=== PATIENT | female | born 1950 | race Caucasian/White ===

== ENCOUNTER → 2018-03-16 | Outpatient (CLI) | payer MEDICARE, OTHER ==
[~2018-03-16] MED LIST: ASPI81EC PO; ATEN25 PO; Augmentin 875-1 EACH PO; CEPH500 PO; DIAZ5 PO; DULO60 PO; ESTR2 PO; ESTRACE; HYDMOR2 PO; LISI20 PO; Norco 10-325 T1 EACH PO; Norco 5-325 Ta1 EACH PO; RXOXYACE PO; Zofran Odt4 MG SL
== END | disposition home or self-care (01) ==
LOC: LAB SHORT 10:00 → PLD 10:00
DX: D22.71 Melanocytic nevi of right lower limb, including hip (principal)
CPT/HCPCS: 88305

== ENCOUNTER 2018-12-28 17:26 | Observation (INO) | payer MEDICARE, OTHER ==
[~2018-12-28] VITALS: Ht 157.5 cm; Wt 83.3 kg
[~2018-12-28 17:26] MED LIST changes: +PROP80ER PO; +VITAMIN D32000 UNI1 PO
[2018-12-28] MEDS ORDERED: Prinivil10 MG PO (17:38)
[2018-12-28] MEDS ORDERED: Prilosec Otc20 MG PO (17:39)
[2018-12-28 18:26] LABS: BASOPHILS ABSOLUTE AUTO 0.09 K/mm3 (0.00-0.23); BASOPHILS PERCENT AUTO 1 % (0-2); EOSINOPHILS ABSOLUTE AUTO 0.08 K/mm3 (0.00-0.68); EOSINOPHILS PERCENT AUTO 1 % (0-6); Hematocrit 44.3 % (33.0-51.0); Hemoglobin 14.4 g/dL (11.5-16.0); IMMATURE GRAN ABSOLUTE AUTO 0.03 K/mm3 (0.00-0.10); IMMATURE GRAN PERCENT AUTO 0 % (0-1); LYMPHOCYTES ABSOLUTE AUTO 2.19 K/mm3 (0.84-5.20); LYMPHOCYTES PERCENT AUTO 24 % (21-46); MONOCYTES ABSOLUTE AUTO 0.93 K/mm3 (0.16-1.47); MONOCYTES PERCENT AUTO 10 % (4-13); Mean Corpuscular HGB 29.3 pg (26.0-34.0); Mean Corpuscular HGB Conc 32.5 g/dL (31.5-36.5); Mean Corpuscular Volume 90 fL (80-100); Mean Platelet Volume 11.4 fL (9.1-12.4); NEUTROPHILS PERCENT AUTO 64 % (41-73); Platelet Count 303 K/mm3 (150-400); RDW Coefficient Variation 12.1 % (11.7-14.2); RDW Standard Deviation 39.8 fL (35.1-46.3); Red Blood Cell Count 4.91 M/mm3 (3.80-5.20); White Blood Cell Count 9.12 K/mm3 (4.00-11.30)
[2018-12-28 19:07] LABS: Troponin I <0.015 ng/mL (0.000-0.040)
[2018-12-28 19:08] LABS: Alanine Aminotransfer (ALT/SGP 67 U/L (12-78); Albumin/Globulin Ratio 1.1 (0.8-1.8); Alk Phos 77 U/L (50-136); Anion Gap 12 mmol/L (6-16); Aspartate Aminotrans (AST/SGOT 27 U/L (12-37); Bilirubin, Total 0.1 mg/dL (0.1-1.0); Blood Urea Nitrogen 3 mg/dL (8-24); Bun/Creatinine Ratio 6.6 (12.0-20.0); CO2, Blood 19 mmol/L (21-32); Calcium, Blood 8.6 mg/dL (8.5-10.1); Chloride, Blood 113 mmol/L (98-108); Creatinine, Blood 0.46 mg/dL (0.40-1.00); Globulin, Blood 3.8 g/dL (2.2-4.0); Glomerular Filtration Rate >60 (60-); Glucose, Blood 141 mg/dL (70-99); Potassium, Blood 2.8 mmol/L (3.5-5.5); Sodium, Blood 144 mmol/L (136-145); Total Protein, Blood 7.8 g/dL (6.4-8.2)
[2018-12-28] MEDS ORDERED: ALPR.25 PO (20:37)
[2018-12-29 06:30] LABS: Anion Gap 7 mmol/L (6-16); Blood Urea Nitrogen 22 mg/dL (8-24); Bun/Creatinine Ratio 30.9 (12.0-20.0); CO2, Blood 27 mmol/L (21-32); Calcium, Blood 8.3 mg/dL (8.5-10.1); Chloride, Blood 110 mmol/L (98-108); Creatinine, Blood 0.71 mg/dL (0.40-1.00); Glomerular Filtration Rate >60 (60-); Glucose, Blood 107 mg/dL (70-99); Sodium, Blood 144 mmol/L (136-145)
--- NOTE | 2018-12-29 07:56 | NUR ---
SHIFT SUMMARY PT ALERT AND ORIENTED X 3 SINCE ARRIVAL FROM ER THIS EVENING. SHE IS PLEASANT AND COOPERATIVE WITH VITALS AND ASSESSMENTS. SHE IS ABLE TO APPROPRIATELY COMMUNICATE AND EXPRESS NEEDS. SHE SLEPT WELL DURING THE NIGHT. PT VITALS HAVE BEEN STABLE SINCE ARRIVAL, SHE HAD HAD NO COMLAINTS OF PAIN OR DISCOMFORT AND SHE WAS ABLE EAT AND DRINK WITHOUT DIFFICULTY. PT HAS BEEN INDEPENDENT IN THE ROOM AND WAS OBSERVED TO BE STEADY AND WELL BALANCED DURING AMBULATION. PT USED HER CALL LIGHT APPROPRIATELY AND IT WAS LEFT WITHIN EASY REACH. PT'S RATE HAS BEEN WELL CONTROLLED SINCE ARRIVAL. SHE WILL CONTINUE TO BE MONITORED UNTIL HANDOFF TO DAYSHIFT RN.
--- NOTE | 2018-12-29 10:44 | NUR ---
Echocardiogram completed.
--- NOTE | 2018-12-30 06:19 | NUR ---
SHIFT SUMMARY PT ALERT AND ORIENTED X 3 THROUGHOUT SHIFT. SHE WAS PLEASANT AND COOPERATIVE AND SLEPT THROUGHOUT SHIFT. SHE HAD A HEADACHE AT SHIFT CHANGE AND WAS PROVIDED ORDERED TYLENOL. THIS HELPED AND BY SECOND DOSE, SHE SAID HEADACHE WAS CLEARED UP. PT INDEPENDENT IN THE ROOM. NO ACUTE CHANGES WERE OBSERVED TO VITALS AND PT WAS ABLE TO EFFECTIVELY MAKE NEEDS KNOWN. PT WILL CONTINUE TO BE MONITORED UNTIL HANDOFF TO DAYSHIFT RN. SHE REMAINS NPO AT THIS TIME FOR SECOND PORTION OF HER STRESS TEST.
--- NOTE | 2018-12-30 08:00 | NUR ---
AM Assessment: Pt resting in bed. LS clear. HR reg. BT positive. Pulses palp. Pt denies CP/SOB. States that she has been chest pain free since being in PCU. VSS. Pt does have a C/O headache likely a Caffiene headache. Pt NPO after breakfast for 2nd portion of stress test. Pt denies other needs. Call light in reach.
--- NOTE | 2018-12-30 14:49 | NUR ---
update: Pt back in room after images being completed. Pt had lexiscan at around 1230. She had some leg cramping and headache with injection. After caffiene pt was feeling much better. at bedside. Pt denies needs at this time. Call light in reach.
[2018-12-30] MEDS ORDERED: ACET325 PO (17:05)
[2018-12-30] MEDS ORDERED: PROP80ER PO (17:06)
== END 2018-12-30 18:06 | disposition home or self-care (01) ==
LOC: ER 17:26 → PCU 17:27
PROVIDERS: Emergency Medicine; ADMIT Internal Medicine
DX: R07.2 Precordial pain (principal); E87.6 Hypokalemia; I10 Essential (primary) hypertension; G43.909 Migraine, unspecified, not intractable, without status migrainosus; F41.9 Anxiety disorder, unspecified; E78.5 Hyperlipidemia, unspecified; E66.3 Overweight; Z88.8 Allergy status to other drugs, medicaments and biological substances; Z88.5 Allergy status to narcotic agent; Z88.6 Allergy status to analgesic agent; Z79.899 Other long term (current) drug therapy; Z63.4 Disappearance and death of family member; Z68.32 Body mass index [BMI] 32.0-32.9, adult
CPT/HCPCS: 36415; 71046; 78452; 80048; 80053; 84484; 85025; 93005; 93010; 93017; 93306; 96374; 99285-25; A9500; G0378; J0706; J2270; J2405; J2785

== ENCOUNTER 2019-08-12 13:27 | Emergency (ER) | payer MEDICARE, OTHER ==
[~2019-08-12] VITALS: Ht 160 cm; Wt 86.2 kg
[~2019-08-12 13:27] MED LIST changes: +ACET325 PO; +ALPR.25 PO; +Prilosec Otc20 MG PO; +Prinivil10 MG PO
== END 2019-08-12 16:39 | disposition home or self-care (01) ==
LOC: ER 13:27
DX: R51 Headache (principal); I10 Essential (primary) hypertension; Z88.5 Allergy status to narcotic agent; Z79.899 Other long term (current) drug therapy
CPT/HCPCS: 70450; 96361; 96372-59; 96374; 96375; 96376; 99284-25; J1100; J1200; J1885; J2765; J7030

== ENCOUNTER 2019-08-24 14:41 | Emergency (ER) | payer MEDICARE, OTHER ==
[~2019-08-24] VITALS: Ht 160 cm; Wt 79.4 kg
[2019-08-24 15:41] LABS: BASOPHILS ABSOLUTE AUTO 0.03 K/mm3 (0.00-0.23); BASOPHILS PERCENT AUTO 0 % (0-2); EOSINOPHILS ABSOLUTE AUTO 0.19 K/mm3 (0.00-0.68); EOSINOPHILS PERCENT AUTO 2 % (0-6); Hematocrit 40.3 % (33.0-51.0); Hemoglobin 13.2 g/dL (11.5-16.0); IMMATURE GRAN ABSOLUTE AUTO 0.05 K/mm3 (0.00-0.10); IMMATURE GRAN PERCENT AUTO 1 % (0-1); LYMPHOCYTES ABSOLUTE AUTO 2.28 K/mm3 (0.84-5.20); LYMPHOCYTES PERCENT AUTO 29 % (21-46); MONOCYTES ABSOLUTE AUTO 0.58 K/mm3 (0.16-1.47); MONOCYTES PERCENT AUTO 7 % (4-13); Mean Corpuscular HGB 32.8 pg (26.0-34.0); Mean Corpuscular HGB Conc 32.8 g/dL (31.5-36.5); Mean Corpuscular Volume 100 fL (80-100); Mean Platelet Volume 9.3 fL (9.1-12.4); NEUTROPHILS ABSOLUTE AUTO 4.69 K/mm3 (1.96-9.15); NEUTROPHILS PERCENT AUTO 60 % (41-73); Platelet Count 265 K/mm3 (150-400); RDW Coefficient Variation 13.9 % (11.7-14.2); Red Blood Cell Count 4.03 M/mm3 (3.80-5.20); White Blood Cell Count 7.82 K/mm3 (4.00-11.30)
[2019-08-24 16:09] LABS: Source, Urine Clean Catch
[2019-08-24 16:14] LABS: Bilirubin, Urine Neg (Neg); Blood, Urine Neg (Neg); Glucose Qualitative, Urine Neg (Neg); Ketones, Urine Neg (Neg); Leukocyte Esterase, Urine Neg (Neg); Nitrite, Urine Neg (Neg); Protein, Urine Neg (Neg); Urobilinogen, Urine NORM (Normal)
[2019-08-24 16:16] LABS: Alanine Aminotransfer (ALT/SGP 37 U/L (12-78); Albumin, Blood 3.8 g/dL (3.4-5.0); Albumin/Globulin Ratio 1.2 (0.8-1.8); Alk Phos 49 U/L (50-136); Anion Gap 5 mmol/L (6-16); Aspartate Aminotrans (AST/SGOT 30 U/L (12-37); Bilirubin, Total 0.4 mg/dL (0.1-1.0); Blood Urea Nitrogen 19 mg/dL (8-24); Bun/Creatinine Ratio 25.4 (12.0-20.0); CO2, Blood 29 mmol/L (21-32); Calcium, Blood 9.6 mg/dL (8.5-10.1); Chloride, Blood 106 mmol/L (98-108); Creatinine, Blood 0.75 mg/dL (0.40-1.00); Globulin, Blood 3.3 g/dL (2.2-4.0); Glomerular Filtration Rate >60 (60-); Glucose, Blood 118 mg/dL (70-99); Potassium, Blood 3.9 mmol/L (3.5-5.5); Sodium, Blood 140 mmol/L (136-145); Total Protein, Blood 7.1 g/dL (6.4-8.2)
[2019-08-24 16:28] LABS: Appearance, Urine Clear (Clear); Color, Urine Yellow (P-Yellow)
[2019-08-24] MEDS ORDERED: LEVSOD50 PO (16:46)
[2019-08-24] MEDS ORDERED: PROG100 PO (16:47)
[2019-08-24] MEDS ORDERED: CLIMARA1 EACH PO (16:47)
[2019-08-24] MEDS ORDERED: Augmentin 875-1 EACH PO (17:09)
[2019-08-24] MEDS ORDERED: Norco 5-325 Ta1 EACH PO (17:09)
[2019-08-24] MEDS ORDERED: Flagyl500 MG PO (17:09)
== END 2019-08-24 17:35 | disposition home or self-care (01) ==
LOC: ER 14:41
PROVIDERS: Physician Assistant
DX: R10.32 Left lower quadrant pain (principal); I10 Essential (primary) hypertension; Z88.8 Allergy status to other drugs, medicaments and biological substances; Z79.899 Other long term (current) drug therapy
CPT/HCPCS: 36415; 74176; 80053; 81003; 83690; 85025; 96374; 96375; 96376; 99284-25; A9270-GY; J2405; J3010

== ENCOUNTER → 2020-02-13 | Outpatient (CLI) | payer MEDICARE, OTHER ==
[~2020-02-13] MED LIST changes: +ALMACONE SUSPE355 ML PO; +CLIMARA1 EACH PO; +Flagyl500 MG PO; +Keflex500 MG PO; +LEVSOD50 PO; +OMEP20ER PO; +PANTOPRAZOLE SO40 M2 PO; +PROG100 PO; +Pyridium200 MG PO
== END | disposition home or self-care (01) ==
LOC: LAB SHORT 14:53 → PLD 14:53
DX: D48.5 Neoplasm of uncertain behavior of skin (principal)
CPT/HCPCS: 88305

== ENCOUNTER 2020-03-07 11:06 | Day surgery (SDC) | payer MEDICARE, OTHER ==
[~2020-03-07] VITALS: Ht 165.1 cm; Wt 86.0 kg
[~2020-03-07 11:06] MED LIST changes: +IMITREX25 MG PO; +VITAMIN D3 PO
--- NOTE | 2020-03-07 11:37 | NUR ---
Ambulatory in Day SurgeryPatient states colon prep results clear. History, Chart, Medications and Allergies reviewed before start of procedure.Lungs clear T/O to Auscultation. Patient confirms NPO status and agrees with scheduled surgery. Pre-Op teaching done. Pt verbalizes understanding. Patient States Post-Procedure ride home has been arranged.
--- NOTE | 2020-03-07 12:49 | NUR ---
03/07/20 1249 ROSELYN HILTON History, Chart, Medications and Allergies reviewed before start of procedure. O2 VIA N/C INTACT THROUGHOUT SEDATION/PROCEDURE. 3-LEAD EKG REVIEWED WITH PHYSICIAN PRIOR TO START OF PROCEDURE. MONITOR INTACT WITH CONTINUOUS PULSE OXIMETRY AND INTERMITTENT BP. PATIENT DETERMINED TO BE ASA APPROPRIATE FOR PROPOFOL SEDATION PRIOR TO START OF PROCEDURE BY DR. SRIVASTAVA.
== END 2020-03-07 22:53 | disposition home or self-care (01) ==
LOC: ORSCMMR 11:06 → ORD 12:30 → ORSCMMR 22:53
PROVIDERS: Internal Medicine Gastroenterology
PROC: 0DBH8ZX Excision of Cecum, Via Natural or Artificial Opening Endoscopic, Diagnostic (ICD-10-PCS; principal; 2020-03-07 12:30)
PROC: 0DBK8ZX Excision of Ascending Colon, Via Natural or Artificial Opening Endoscopic, Diagnostic (ICD-10-PCS; principal; 2020-03-07 12:30)
DX: R10.31 Right lower quadrant pain (principal); D12.2 Benign neoplasm of ascending colon; D12.0 Benign neoplasm of cecum; K57.30 Diverticulosis of large intestine without perforation or abscess without bleeding; K64.8 Other hemorrhoids; I10 Essential (primary) hypertension; E66.9 Obesity, unspecified; Z68.35 Body mass index [BMI] 35.0-35.9, adult; F41.9 Anxiety disorder, unspecified; Z79.899 Other long term (current) drug therapy
CPT/HCPCS: 88305; J2704; J7120

== ENCOUNTER → 2020-08-12 | Outpatient (CLI) | payer MEDICARE, OTHER | END | disposition home or self-care (01) | LOC: PLD 07:59 → LAB SHORT 07:59 | DX: D22.62 Melanocytic nevi of left upper limb, including shoulder (principal) | CPT/HCPCS: 88305 ==

== ENCOUNTER 2021-04-04 11:31 | Day surgery (SDC) | payer MEDICARE, OTHER ==
[~2021-04-04] VITALS: Ht 160 cm; Wt 87.5 kg
[~2021-04-04 11:31] MED LIST changes: +PROP10 PO
[2021-04-04] MEDS ORDERED: DULO30 PO (13:00)
[2021-04-04] MEDS ORDERED: ZINC50 M3 PO (13:01)
== END 2021-04-04 16:38 | disposition home or self-care (01) ==
LOC: ORSCSDS 11:31
PROVIDERS: Orthopaedic Surgery
PROC: 0SBD4ZZ Excision of Left Knee Joint, Percutaneous Endoscopic Approach (ICD-10-PCS; principal; 2021-04-04 13:00)
DX: M94.262 Chondromalacia, left knee (principal); M65.9 Synovitis and tenosynovitis, unspecified; K21.9 Gastro-esophageal reflux disease without esophagitis; I10 Essential (primary) hypertension; Z79.899 Other long term (current) drug therapy
CPT/HCPCS: A9270; J0690; J1100; J1885; J2250; J2405; J2704; J3010; J7120

== ENCOUNTER → 2021-11-05 | Outpatient (CLI) | payer MEDICARE, OTHER ==
[~2021-11-05] MED LIST changes: +DULO30 PO; +ZINC50 M3 PO
== END | disposition home or self-care (01) ==
LOC: LAB SHORT 15:45
DX: R10.9 Unspecified abdominal pain (principal); R30.0 Dysuria
CPT/HCPCS: 87077; 87086; 87186

== ENCOUNTER 2022-08-13 10:49 | Day surgery (SDC) | payer MEDICARE, OTHER ==
[~2022-08-13] VITALS: Ht 160 cm; Wt 85.7 kg
[2022-08-13] MEDS ORDERED: MERIBIN5 MG (11:19)
== END 2022-08-13 13:25 | disposition home or self-care (01) ==
LOC: ORSCSDS 10:49
PROVIDERS: Internal Medicine Gastroenterology
PROC: 0DB98ZX Excision of Duodenum, Via Natural or Artificial Opening Endoscopic, Diagnostic (ICD-10-PCS; principal; 2022-08-13 12:00)
PROC: 0DB78ZX Excision of Stomach, Pylorus, Via Natural or Artificial Opening Endoscopic, Diagnostic (ICD-10-PCS; principal; 2022-08-13 12:00)
PROC: 0DJD8ZZ Inspection of Lower Intestinal Tract, Via Natural or Artificial Opening Endoscopic (ICD-10-PCS; principal; 2022-08-13 12:00)
PROC: 0DB58ZX Excision of Esophagus, Via Natural or Artificial Opening Endoscopic, Diagnostic (ICD-10-PCS; principal; 2022-08-13 12:00)
DX: K22.70 Barrett's esophagus without dysplasia (principal); K29.70 Gastritis, unspecified, without bleeding; Z86.010 Personal history of colon polyps; I10 Essential (primary) hypertension; Z79.899 Other long term (current) drug therapy; Z85.820 Personal history of malignant melanoma of skin
CPT/HCPCS: 88305; 88342; J0330; J0461; J2405; J2704; J7120; Q9968

== ENCOUNTER 2022-12-15 13:15 | Emergency (ER) | payer MEDICARE, OTHER ==
[~2022-12-15] VITALS: Ht 160 cm; Wt 83.9 kg
[~2022-12-15 13:15] MED LIST changes: +MERIBIN5 MG
[2022-12-15 13:47] LABS: BASOPHILS ABSOLUTE AUTO 0.03 K/mm3 (0.00-0.23); BASOPHILS PERCENT AUTO 1 % (0-2); EOSINOPHILS ABSOLUTE AUTO 0.05 K/mm3 (0.00-0.68); EOSINOPHILS PERCENT AUTO 1 % (0-6); Hematocrit 38.5 % (33.0-51.0); IMMATURE GRAN ABSOLUTE AUTO 0.05 K/mm3 (0.00-0.10); IMMATURE GRAN PERCENT AUTO 1 % (0-1); LYMPHOCYTES ABSOLUTE AUTO 0.62 K/mm3 (0.84-5.20); LYMPHOCYTES PERCENT AUTO 11 % (21-46); MONOCYTES ABSOLUTE AUTO 0.56 K/mm3 (0.16-1.47); MONOCYTES PERCENT AUTO 10 % (4-13); Mean Corpuscular HGB 33.2 pg (26.0-34.0); Mean Corpuscular HGB Conc 33.8 g/dL (31.5-36.5); Mean Corpuscular Volume 99 fL (80-100); Mean Platelet Volume 9.4 fL (9.1-12.4); NEUTROPHILS ABSOLUTE AUTO 4.11 K/mm3 (1.96-9.15); NEUTROPHILS PERCENT AUTO 76 % (41-73); Platelet Count 187 K/mm3 (150-400); RDW Coefficient Variation 13.2 % (11.7-14.2); RDW Standard Deviation 48.2 fL (35.1-46.3); Red Blood Cell Count 3.91 M/mm3 (3.80-5.20); White Blood Cell Count 5.42 K/mm3 (4.00-11.30)
[2022-12-15 14:08] LABS: Albumin, Blood 3.6 g/dL (3.4-5.0); Bilirubin, Total 0.9 mg/dL (0.1-1.0); Bun/Creatinine Ratio 13.5 (12.0-20.0); Creatinine, Blood 0.74 mg/dL (0.40-1.00); Globulin, Blood 3.5 g/dL (2.2-4.0); Potassium, Blood 3.9 mmol/L (3.5-5.5); Total Protein, Blood 7.1 g/dL (6.4-8.2)
[2022-12-15 15:15] LABS: Influenza A, PCR NEGATIVE (NEGATIVE); Influenza B, PCR NEGATIVE (NEGATIVE); Resp Syncytial Virus, PCR NEGATIVE (NEGATIVE)
[2022-12-15 15:54] LABS: SARS-Cov-2 (COVID-19) PCR, MMC POSITIVE (NEGATIVE)
== END 2022-12-15 17:19 | disposition home or self-care (01) ==
LOC: ER 13:15
PROVIDERS: Emergency Medicine; Student in an Organized Health Care Education/Training Program
DX: U07.1 COVID-19 (principal); I10 Essential (primary) hypertension; K21.9 Gastro-esophageal reflux disease without esophagitis; Z88.6 Allergy status to analgesic agent; Z88.8 Allergy status to other drugs, medicaments and biological substances; Z88.5 Allergy status to narcotic agent; Z79.899 Other long term (current) drug therapy
CPT/HCPCS: 0241U; 71045; 80053; 83690; 84484; 85025; 93005; 93010; 96374; 99284-25; A9270; J0780; J7030

== ENCOUNTER 2023-01-21 07:19 | Day surgery (SDC) | payer MEDICARE, OTHER ==
[~2023-01-21] VITALS: Ht 160 cm; Wt 86.2 kg
[2023-01-21 11:13] VITALS: BP 113/82
== END 2023-01-21 10:00 | disposition home or self-care (01) ==
LOC: ORSCSDS 07:19
PROVIDERS: Internal Medicine Gastroenterology
PROC: 0DBH8ZX Excision of Cecum, Via Natural or Artificial Opening Endoscopic, Diagnostic (ICD-10-PCS; principal; 2023-01-21 08:45)
PROC: 0DBP8ZX Excision of Rectum, Via Natural or Artificial Opening Endoscopic, Diagnostic (ICD-10-PCS; principal; 2023-01-21 08:45)
PROC: 0DBN8ZX Excision of Sigmoid Colon, Via Natural or Artificial Opening Endoscopic, Diagnostic (ICD-10-PCS; principal; 2023-01-21 08:45)
DX: R10.84 Generalized abdominal pain (principal); K59.09 Other constipation; Z86.010 Personal history of colon polyps; D12.0 Benign neoplasm of cecum; D12.5 Benign neoplasm of sigmoid colon; K62.1 Rectal polyp; K57.30 Diverticulosis of large intestine without perforation or abscess without bleeding; K64.4 Residual hemorrhoidal skin tags; I10 Essential (primary) hypertension; Z79.899 Other long term (current) drug therapy
CPT/HCPCS: 88305; J2704; J7120

== ENCOUNTER 2023-07-29 20:06 | Emergency (ER) | payer MEDICARE, OTHER ==
[~2023-07-29] VITALS: Ht 160 cm; Wt 81.7 kg
[2023-07-29 20:59] LABS: BASOPHILS ABSOLUTE AUTO 0.05 K/mm3 (0.00-0.23); BASOPHILS PERCENT AUTO 0 % (0-2); EOSINOPHILS ABSOLUTE AUTO 0.21 K/mm3 (0.00-0.68); EOSINOPHILS PERCENT AUTO 2 % (0-6); Hematocrit 37.4 % (33.0-51.0); Hemoglobin 13.4 g/dL (11.5-16.0); IMMATURE GRAN ABSOLUTE AUTO 0.05 K/mm3 (0.00-0.10); IMMATURE GRAN PERCENT AUTO 0 % (0-1); LYMPHOCYTES ABSOLUTE AUTO 3.24 K/mm3 (0.84-5.20); LYMPHOCYTES PERCENT AUTO 29 % (21-46); MONOCYTES ABSOLUTE AUTO 1.04 K/mm3 (0.16-1.47); MONOCYTES PERCENT AUTO 9 % (4-13); Mean Corpuscular HGB 34.1 pg (26.0-34.0); Mean Corpuscular HGB Conc 35.8 g/dL (31.5-36.5); Mean Corpuscular Volume 95 fL (80-100); Mean Platelet Volume 9.8 fL (9.1-12.4); NEUTROPHILS ABSOLUTE AUTO 6.64 K/mm3 (1.96-9.15); NEUTROPHILS PERCENT AUTO 59 % (41-73); Platelet Count 247 K/mm3 (150-400); RDW Coefficient Variation 12.8 % (11.7-14.2); RDW Standard Deviation 44.8 fL (35.1-46.3); Red Blood Cell Count 3.93 M/mm3 (3.80-5.20); White Blood Cell Count 11.23 K/mm3 (4.00-11.30)
[2023-07-29 21:15] LABS: Albumin, Blood 3.6 g/dL (3.4-5.0); Albumin/Globulin Ratio 0.9 (0.8-1.8); Bun/Creatinine Ratio 12.4 (12.0-20.0); Calcium, Blood 8.9 mg/dL (8.5-10.1); Creatinine, Blood 0.73 mg/dL (0.40-1.00); Globulin, Blood 4.2 g/dL (2.2-4.0); Potassium, Blood 3.2 mmol/L (3.5-5.5); Total Protein, Blood 7.8 g/dL (6.4-8.2)
[2023-07-29 22:17] VITALS: BP 115/78
[2023-07-29 22:52] LABS: Source, Urine Voided
[2023-07-29 22:56] LABS: Bilirubin, Urine Neg (Neg); Blood, Urine Neg (Neg); Glucose Qualitative, Urine Neg (Neg); Ketones, Urine Neg (Neg); Leukocyte Esterase, Urine Neg (Neg); Nitrite, Urine Neg (Neg); Protein, Urine Neg (Neg); Specific Gravity, Urine 1.005 (1.003-1.022); Urobilinogen, Urine NORM (Normal)
[2023-07-29 23:07] LABS: Appearance, Urine Clear (Clear); Color, Urine Yellow (P-Yellow)
[2023-07-29] MEDS ORDERED: AMOCLA875 PO (23:27)
[2023-07-29] MEDS ORDERED: OXAYDO5 M1 PO (23:27)
== END 2023-07-30 00:07 | disposition home or self-care (01) ==
LOC: ER 20:06
PROVIDERS: Student in an Organized Health Care Education/Training Program
DX: K57.32 Diverticulitis of large intestine without perforation or abscess without bleeding (principal); E87.6 Hypokalemia; Z88.8 Allergy status to other drugs, medicaments and biological substances; Z79.899 Other long term (current) drug therapy; I10 Essential (primary) hypertension; G43.909 Migraine, unspecified, not intractable, without status migrainosus; K21.9 Gastro-esophageal reflux disease without esophagitis
CPT/HCPCS: 74177; 80053; 81003; 83690; 85025; 93005; 93010; 96374-59; 99285-25; A9270; J1170; J7030; Q9967

== ENCOUNTER 2025-05-02 08:05 | Day surgery (SDC) | payer OTHER ==
[2025-05-02] VITALS (12 sets, daily range): BP systolic 101–128; BP diastolic 60–88
[~2025-05-02] VITALS: Ht 160 cm; Wt 83.1 kg
[~2025-05-02 08:05] MED LIST changes: +ALPRAZOLAM0.25 MG PO; +AMOCLA875 PO; -DULO30 PO; +HYDCHL25 PO; +Inderal60 MG PO; +OXAYDO5 M1 PO; -PROP10 PO
[2025-05-02] MEDS ORDERED: CeFAZolin Sodium 2,000 MG in NS 100 ML IV SCH ×2 (08:10→10:25)
[2025-05-02] MEDS ORDERED: CeFAZolin Sodium 2,000 MG VIAL ONE (08:38)
--- NOTE | 2025-05-02 08:48 | NUR ---
Ambulatory in Day SurgeryPre-Op teaching done. Pt verbalizes understanding. History, Chart, Medications and Allergies reviewed before start of procedure.Patient confirms NPO status and agrees with scheduled surgery. Patient reports completing Chlorhexadine shower X2 prior to admission to hospital.Patient States Post-Procedure ride home has been arranged.
[2025-05-02] MEDS ORDERED: Bupivacaine 0.5% HCl 5 MG/ML 30MLVIAL ONE (09:21)
[2025-05-02] MEDS ORDERED: FentaNYL Citrate 50 MCG/ML 2 ML Injection ONE (10:23)
[2025-05-02] MEDS ORDERED: Midazolam HCl 1MG / ML 2ML Vial ONE (10:23)
[2025-05-02] MEDS ORDERED: CeFAZolin Sodium 1000 mg Vial ONE (10:26)
[2025-05-02] MEDS ORDERED: Dexamethasone Sod Phos 10 MG/ML 1ML VIAL ONE (11:19)
[2025-05-02] MEDS ORDERED: Ondansetron HCl 2 MG / ML 2ML Vial ONE ×2 (11:19→13:19)
[2025-05-02] MEDS ORDERED: HYDROmorphone HCl/Pf 1MG SYR ONE ×2 (12:13→12:25)
[2025-05-02] MEDS ORDERED: HYDROmorphone HCl/Pf 1MG SYR IV PRN ×2 (12:20)
[2025-05-02] MEDS ORDERED: Ondansetron HCl 2 MG / ML 2ML Vial IV PRN (12:20)
[2025-05-02] MEDS ORDERED: FentaNYL Citrate 50 MCG/ML 2 ML Injection IV PRN ×2 (12:20)
[2025-05-02] MEDS ORDERED: HYDROcodone 5-APAP 325 TAB PO PRN (12:25)
--- NOTE | 2025-05-02 14:05 | NUR ---
Patient up to Ambulate independently. Gait steady. Discharge instructions reviewed with patient. Patient verbalizes understanding. Copy given to patient to take home, WELL FAMILY/FRIEND. Patient States Post-Procedure ride home has been arranged. Discharged via wheelchair to private car for ride home. PT BREAST BINDER IN PLACE, C/D/I. ICE BEEN IN PLACE. PT TOLERATING PO. REPORTS READY TO GO HOME.
== END 2025-05-02 14:10 | disposition home or self-care (01) ==
LOC: NM 08:05 → ORSCMMR 08:05 → NM 09:30
PROVIDERS: Surgery
PROC: 0HBU0ZZ Excision of Left Breast, Open Approach (ICD-10-PCS; principal; 2025-05-02 10:00)
PROC: 07B60ZX Excision of Left Axillary Lymphatic, Open Approach, Diagnostic (ICD-10-PCS; principal; 2025-05-02 10:00)
DX: C50.512 Malignant neoplasm of lower-outer quadrant of left female breast (principal); C77.3 Secondary and unspecified malignant neoplasm of axilla and upper limb lymph nodes; Z17.0 Estrogen receptor positive status [ER+]; Z17.21 Progesterone receptor positive status; Z17.32 Human epidermal growth factor receptor 2 negative status; I10 Essential (primary) hypertension; K21.9 Gastro-esophageal reflux disease without esophagitis; Z79.899 Other long term (current) drug therapy
CPT/HCPCS: 38792; A9270; A9520; J0690; J1100; J1171; J2250; J2405; J2704; J3010; J7120